=== PATIENT | male | born 1955 | race Caucasian/White ===

== ENCOUNTER 2019-11-20 06:38 | Day surgery (SDC) | payer MEDICARE ==
[2019-11-19 14:00] VITALS: BP 152/72
[2019-11-20] VITALS (24 sets, daily range): BP systolic 103–162; BP diastolic 53–84
[~2019-11-20] VITALS: Ht 180.3 cm; Wt 118.5 kg
[2019-11-20] MEDS: CLINDAMYCIN 900 MG/D5% WATER 50 ML IV SCH ×2 (06:00→08:35)
[~2019-11-20 06:38] MED LIST: EZET10TA48 PO; FLUT1BLS3 IH; METO-391 PO; ROSU40TA21 PO; THEO400T3 PO; UBID200C18 PO
[2019-11-20] MEDS ORDERED: LACTATED RINGERS 1000ML 1,000 ML IV ONE ×2 (07:28→07:44)
[2019-11-20] MEDS ORDERED: IPRATROPIUM/ALBUTEROL SULFATE 3 ML SOLUTION IH ONE ×3 (08:05→10:20)
[2019-11-20] MEDS ORDERED: RIVA20TA PO (08:27)
[2019-11-20] MEDS ORDERED: CHOL100046 PO (08:28)
[2019-11-20] MEDS ORDERED: CYAN-35 PO (08:30)
[2019-11-20] MEDS ORDERED: LIDOCAINE PF 2% 5ML ABBOJECT ONE (08:31)
[2019-11-20] MEDS ORDERED: MIDAZOLAM HCL 1 MG/ML 2ML VIAL ONE (08:32)
[2019-11-20] MEDS ORDERED: DEXAMETHASONE SOD PHOSPHATE 10MG/ML 1ML VIAL ONE (08:32)
[2019-11-20] MEDS ORDERED: ONDANSETRON HCL 4 MG/2 ML VIAL ONE (08:32)
[2019-11-20] MEDS ORDERED: PROPOFOL 10 MG/ML 20ML VIAL IV ONE (08:32)
[2019-11-20] MEDS ORDERED: FENTANYL CITRATE PF 50 MCG/1 ML 2ML VIAL ONE (08:32)
[2019-11-20] MEDS ORDERED: ROCURONIUM 10MG/1ML SYR 10 MG/ML ML ONE (08:41)
[2019-11-20] MEDS ORDERED: EPHEDRINE SULFATE 50 MG/ML AMPULE ONE (08:57)
[2019-11-20] MEDS ORDERED: NEOSTIGMINE 5MG/5ML SYR IV ONE (09:23)
[2019-11-20] MEDS ORDERED: SUB TO ALBUTEROL 2.5MG/3ML NEBULES PER P&T IH ONE (09:23)
[2019-11-20] MEDS ORDERED: GLYCOPYRROLATE 1 MG/5 ML SYRINGE ONE (09:23)
[2019-11-20] MEDS ORDERED: ACET1TAB12 PO (09:48)
[2019-11-20] MEDS ORDERED: CLIN300C3 PO (09:48)
--- NOTE | 2019-11-20 11:05 | NUR ---
ASSESSMENT RECEIVED PT FROM PACU STAFF MAGAN MATIAS. PT AAOX3. O2 SAT OF 90% ON ROOM AIR. Elpidio SALMON CRNA HERE SPEAKING TO PT AND PTS . PER DR. WHEELER AND Elpidio SALMON CRNA PT TO GO HOME AND USE OWN 02 VIA NC. IF PT HAS ANY BREATING DIFFICULTY, PT TO RETURN TO ER OR CALL 911. BOTH PT AND PTS VERBALIZED UNDERSTANDING.
--- NOTE | 2019-11-20 12:10 | NUR ---
D/C PT DISCHARGED. INSRUCTED ON IMPORTANCE OF HAVING PT ON 02 AND DOING DEEP BREATHING AND COUGHING. BOTH VERBALIZED UNDERSTANDING. CRUTCHES, ICE BAG, AND PRESCRIPTION GIVEN TO PTS . NO OTHER QUESTIONS AT THIS TIME.
== END 2019-11-20 12:15 | disposition home or self-care (01) ==
LOC: DAH 06:38
PROVIDERS: ATTEND Orthopaedic Surgery
DX: M23.321 Other meniscus derangements, posterior horn of medial meniscus, right knee (principal); M22.41 Chondromalacia patellae, right knee; G89.29 Other chronic pain; M17.0 Bilateral primary osteoarthritis of knee; I25.810 Atherosclerosis of coronary artery bypass graft(s) without angina pectoris; E78.5 Hyperlipidemia, unspecified; I48.0 Paroxysmal atrial fibrillation; E66.9 Obesity, unspecified; I25.2 Old myocardial infarction; Z88.0 Allergy status to penicillin; Z88.8 Allergy status to other drugs, medicaments and biological substances; Z79.82 Long term (current) use of aspirin; Z79.899 Other long term (current) drug therapy; Z79.01 Long term (current) use of anticoagulants; Z95.1 Presence of aortocoronary bypass graft; Z98.890 Other specified postprocedural states; Z87.891 Personal history of nicotine dependence; Z68.36 Body mass index [BMI] 36.0-36.9, adult
CPT/HCPCS: 29881; 94640 ×3; A4215; A4221; A4222; A4606; A4649 ×2; A4663; A4930; A5120; A6223; J1100; J2001; J2250; J2405; J2704; J2710; J3010; J3490 ×3; J7030; J7120 ×2

== ENCOUNTER 2019-11-21 11:14 | Emergency (ER) | payer MEDICARE ==
[~2019-11-21 11:14] MED LIST changes: +ACET1TAB12 PO; +CHOL100046 PO; +CLIN300C3 PO; +CYAN-35 PO; +RIVA20TA PO
[2019-11-21 11:51] LABS: BASOPHILS % (AUTO) 0.1 % (0.0-5.0); EOSINOPHILS % (AUTO) 0.1 % (0.0-8.0); HEMATOCRIT 41.9 % (42-54); LYMPHOCYTES % (AUTO) 12.3 % (21.0-51.0); MEAN CORPUSCULAR HGB CONC 32.7 g/dL (32.0-36.0); MEAN CORPUSCULAR VOLUME 91.7 fL (79-99); MONOCYTES % (AUTO) 8.7 % (3.0-13.0); NEUTROPHILS % (AUTO) 78.5 % (40.0-77.0); PLATELET COUNT (AUTO) 221 K/uL (130-400); RED BLOOD CELL COUNT(AUTO) 4.57 MIL/uL (4.50-6.20); RED CELL DISTRIBUTION WIDTH 13.2 % (11.0-15.5); WHITE BLOOD COUNT (AUTO) 14.4 K/uL (4.8-10.8)
[2019-11-21 11:53] LABS: CREATININE 0.9 mg/dL (0.5-1.5); POTASSIUM 4.1 mmol/L (3.5-5.1)
[2019-11-21] MEDS ORDERED: SODIUM CHLORIDE 0.9% 1000ML 1,000 ML IV ONE (11:53)
[2019-11-21 11:57] LABS: ALBUMIN 3.8 g/dL (3.5-5.0); BILIRUBIN,TOTAL 0.4 mg/dL (0.2-1.0); TOTAL PROTEIN, SERUM 7.7 g/dL (6.0-8.3)
[2019-11-21 12:06] LABS: B-TYPE NATRIURETIC PEPTIDE 114 pg/mL (0-100)
[2019-11-21] MEDS ORDERED: IOHEXOL-350 75 ML VIAL IV ONE (12:17)
[2019-11-21 13:40] LABS: INR 0.99 (0.85-1.15); PARTIAL THROMBOPLASTIN TIME 25.7 SEC (26.3-35.5); PROTHROMBIN TIME 10.4 SEC (9.6-11.6)
[2019-11-21 13:50] LABS: ABG HCO3 26.9 mmol/L (21.0-28.0); ABG OXYGEN SATURATION 94.9 % (95.0-99.0); ABG PCO2 48 mmHg (35-48)
== END 2019-11-21 15:12 | disposition home or self-care (01) ==
LOC: EDH 11:14
DX: R06.00 Dyspnea, unspecified (principal); R60.0 Localized edema; J44.9 Chronic obstructive pulmonary disease, unspecified; Z87.891 Personal history of nicotine dependence; Z98.890 Other specified postprocedural states; Z88.0 Allergy status to penicillin; Z88.1 Allergy status to other antibiotic agents; Z88.8 Allergy status to other drugs, medicaments and biological substances
CPT/HCPCS: 36415; 36600; 71045; 71275; 80053; 82550; 82803 ×2; 83880; 84484; 85025; 85610; 85730; 93005; 93971; 94640; 99285; J7030; Q9967

== ENCOUNTER → 2023-03-07 | Outpatient (CLI) | payer MEDICARE | END | disposition home or self-care (01) | LOC: SHCH 11:06 | PROVIDERS: ATTEND Internal Medicine Cardiovascular Disease | DX: I25.10 Atherosclerotic heart disease of native coronary artery without angina pectoris (principal) | CPT/HCPCS: 93880 ==

== ENCOUNTER 2023-07-18 08:22 | Observation (INO) | payer MEDICARE ==
[2023-07-14 10:26] LABS: BASOPHILS # (AUTO) 0.04 K/uL (0.00-0.20); BASOPHILS % (AUTO) 0.6 % (0.0-5.0); EOSINOPHILS # (AUTO) 0.12 K/uL (0.00-0.70); EOSINOPHILS % (AUTO) 1.8 % (0.0-8.0); HEMATOCRIT 43.2 % (42-54); IMMATURE GRANULOCYTE ABSOLUTE 0.01 K/uL (0-1); LYMPHOCYTES # (AUTO) 1.6 K/uL (1.0-4.8); LYMPHOCYTES % (AUTO) 23.2 % (21.0-51.0); MEAN CORPUSCULAR HGB CONC 31.7 g/dL (32.0-36.0); MEAN CORPUSCULAR VOLUME 94.5 fL (79-99); MONOCYTES # (AUTO) 0.7 K/uL (0.1-1.0); MONOCYTES % (AUTO) 10.5 % (3.0-13.0); NEUTROPHILS # (AUTO) 4.3 K/uL (1.8-7.7); NEUTROPHILS % (AUTO) 63.8 % (40.0-77.0); PLATELET COUNT (AUTO) 180 K/uL (130-400); RED BLOOD CELL COUNT(AUTO) 4.57 MIL/uL (4.50-6.20); RED CELL DISTRIBUTION WIDTH 12.5 % (11.0-15.5); WHITE BLOOD COUNT (AUTO) 6.8 K/uL (4.8-10.8)
[2023-07-14 10:37] LABS: CREATININE 0.8 mg/dL (0.5-1.5); POTASSIUM 4.4 mmol/L (3.5-5.1)
[2023-07-14 10:38] LABS: INR 0.98 (0.85-1.15); PROTHROMBIN TIME 11.4 SEC (9.6-11.6)
[2023-07-14 10:40] LABS: PARTIAL THROMBOPLASTIN TIME 28.8 SEC (26.3-35.5)
[2023-07-14 10:53] VITALS: BP 142/79; PULSE 69; RESP 19
[~2023-07-18] VITALS: Ht 177.8 cm; Wt 115.2 kg
[2023-07-18] VITALS (22 sets, daily range): BP systolic 141–179; BP diastolic 65–91; PULSE 61–94; RESP 15–22
[~2023-07-18 08:22] MED LIST changes: -ACET1TAB12 PO; -CHOL100046 PO; -CLIN300C3 PO; -FLUT1BLS3 IH; -METO-391 PO; -THEO400T3 PO; +ventolin IH; +vitamin d3 PO
[2023-07-18] MEDS ORDERED: 0.9%NACL 1000ML 1,000 ML IV ONE (10:00)
[2023-07-18] MEDS ORDERED: PROPOFOL 10 MG/ML 20ML VIAL IV ONE (11:25)
[2023-07-18] MEDS ORDERED: DEXAMETHASONE SOD PHOSPHATE 10MG/ML 1ML VIAL ONE (11:25)
[2023-07-18] MEDS ORDERED: LIDOCAINE PF 100MG/5ML (2%) SYRINGE 5ML ONE (11:25)
[2023-07-18] MEDS ORDERED: ONDANSETRON 4MG INJ ONE (11:26)
[2023-07-18] MEDS ORDERED: NEOSTIGMINE 5MG/5ML SYR IV ONE (11:26)
[2023-07-18] MEDS ORDERED: ROCURONIUM 10MG/1ML SYR 10 MG/ML ML ONE (11:26)
[2023-07-18] MEDS ORDERED: GLYCOPYRROLATE 1 MG/5 ML SYRINGE ONE (11:26)
[2023-07-18] MEDS ORDERED: MIDAZOLAM HCL 1 MG/ML 2ML VIAL ONE (11:26)
[2023-07-18] MEDS ORDERED: FENTANYL CITRATE PF 50 MCG/1 ML 2ML VIAL ONE (11:27)
[2023-07-18] MEDS ORDERED: HEPARIN 10,000 UNIT/10ML (1,000 UNIT/ML) VIAL ONE (13:38)
[2023-07-18] MEDS ORDERED: LIDOCAINE HCL 1% MDV 50ML VIAL ONE ×2 (13:38→17:42)
[2023-07-18] MEDS ORDERED: EPINEPHRINE PF 1MG (1:1,000) 1 MG/ML AMP ONE (13:53)
[2023-07-18] MEDS ORDERED: ADENOSINE 90MG VIAL IV ONE (15:30)
[2023-07-18] MEDS ORDERED: ISOPROTERENOL HCL 0.2 MG/ML AMP/VIAL/BAG ONE (15:46)
[2023-07-18] MEDS ORDERED: BUPIVACAINE/PF 0.25% 30ML VIAL IJ ONE (17:42)
[2023-07-18] MEDS ORDERED: CEFAZOLIN SODIUM 1 GM VIAL ONE (17:42)
[2023-07-18] MEDS ORDERED: VANCOMYCIN 1G/250ML KIT 500 ML IV ONE (17:45)
[2023-07-18] MEDS ORDERED: SUGAMMADEX SODIUM 200 MG/2 ML VIAL IV ONE (18:41)
[2023-07-18] MEDS ORDERED: ACETAMINOPHEN 325 MG TAB PO PRN (19:30)
[2023-07-18] MEDS ORDERED: VENTOLIN IH PRN (20:00)
[2023-07-18] MEDS ORDERED: HYDRALAZINE 20MG/ML VIAL ONE (20:51)
[2023-07-18] MEDS ORDERED: NON-FORMULARY MEDICATION 1 EACH (Rosuvastatin Calcium 40 MG) PO SCH (21:00)
[2023-07-18] MEDS ORDERED: MORPHINE 2 MG SYG IVP PRN (21:30)
[2023-07-19 00:30] VITALS: BP 134/83; PULSE 93; RESP 18
[2023-07-19 01:34] VITALS: BP 128/75; PULSE 91; RESP 20
[2023-07-19 03:13] VITALS: BP 120/65; PULSE 85; RESP 18
[2023-07-19 08:00] VITALS: BP 131/70; PULSE 73; RESP 18
[2023-07-19] MEDS ORDERED: EZETIMIBE 10 MG TAB PO SCH (09:00)
[2023-07-19 11:00] VITALS: BP 124/61; PULSE 71; RESP 18
[2023-07-19] MEDS ORDERED: TRAM50TA4 PO (11:17)
== END 2023-07-19 13:32 | disposition home or self-care (01) ==
LOC: DAH 08:22 → DAHIP 08:23 → 2DH 20:01
PROVIDERS: ADMIT Internal Medicine Cardiovascular Disease; ATTEND Internal Medicine Cardiovascular Disease
DX: I44.1 Atrioventricular block, second degree (principal); I45.6 Pre-excitation syndrome; R00.1 Bradycardia, unspecified; I48.0 Paroxysmal atrial fibrillation; J44.9 Chronic obstructive pulmonary disease, unspecified; E78.5 Hyperlipidemia, unspecified; I25.10 Atherosclerotic heart disease of native coronary artery without angina pectoris; Z79.01 Long term (current) use of anticoagulants; Z79.899 Other long term (current) drug therapy; Z98.890 Other specified postprocedural states
CPT/HCPCS: 80048; 85025; 85610; 85730; 36415; 93005; 93623; 33208; 93653; 71045; C1894 ×5; C1732 ×2; C1785; C1898 ×2; C1730 ×3; A4649 ×2; G0378 ×18; J3010; J3490 ×5; J1100; J2710; J7030; J2001; J0171; J0360; J1644 ×2; J2250; J2704; J2405; J3370; J0153; A4215; A4223 ×3; A4222; A4221; A4663; A4216; A4606; J0690

== ENCOUNTER → 2024-10-16 | Outpatient (CLI) | payer MEDICARE ==
[~2024-10-16] MED LIST changes: +ASPI-1005 PO; -ROSU40TA21 PO; +ROSU40TA88 PO; +TRAM50TA4 PO; +VERA240T96 PO
--- NOTE | 2024-10-16 16:02 | HMCIMG ---
CT LOW EXT W/O CONTRAST HISTORY: Fracture of left radius COMPARISON: None TECHNIQUE: Multiple sequential axial images of the left elbow were obtained including post processing sagittal and coronal reconstruction images. Patient was not given contrast through intravenous route. FINDINGS: There are motion artifacts degrading the image quality. There appears be subtle radial head fracture with articular extension. There is also subtle nondisplaced fracture suspected involving the coronoid process of the proximal ulna. Soft tissue swelling is seen. No definite dislocation is seen in this limited study. IMPRESSION: 1. There are motion artifacts degrading the image quality. There appears be subtle radial head fracture with articular extension in this limited study. There is also subtle nondisplaced fracture suspected involving the coronoid process of the proximal ulna. Soft tissue swelling is seen. CT was performed with one or more following dose reduction techniques: automated exposure control, adjustment of the mA and kv according to patient's size, or use of a iterative reconstruction technique.
== END | disposition home or self-care (01) ==
LOC: RAH 14:37
PROVIDERS: ATTEND Student in an Organized Health Care Education/Training Program
DX: S52.122A Displaced fracture of head of left radius, initial encounter for closed fracture (principal); X58.XXXA Exposure to other specified factors, initial encounter; Y93.89 Activity, other specified; Y92.89 Other specified places as the place of occurrence of the external cause; Y99.8 Other external cause status
CPT/HCPCS: 73700